=== PATIENT | male | born 1960 ===

== ENCOUNTER 2019-10-04 05:53 | Day surgery (SDC) | payer BC, SELFPAY ==
[2019-10-03 12:01] VITALS: BMI 28.0
[2019-10-04 06:05] VITALS: BP 140/84; PULSE 68; RESP 18; TEMP 36.6; O2SAT 99
--- NOTE | 2019-10-04 06:27 | ANES.PREANE2 ---
Pre-Anesthetic Assessment Pre-Anesthetic Assessment: Height/Weight: Height 1.93 m Weight 104.326 kg Preop Diagnosis: left Spigelian hernia Proposed Procedure: Operation Date: 10/04/19 07:00 Proposed Procedures p Ventral Hernia Repair (Open) w/ Mesh/Spieglian hernia(Left) - Wei Mattson MD Last intake: Intake Last Liquid Date 10/03/19 Last Liquid Time 22:30 Last Solid Date 10/03/19 Last Solid Time 22:30 Exam: Pre-Anes Outpt Exam: alert, oriented x 3, clear to auscultation bilaterally and regular rate & rhythm Airway: Submandibular: WNL Cervical ROM: WNL MP: 1 : Comments: s/p left nephrectomy '11 GI: GI: GERD Comments: tums only Anesthetic Plan: ASA status: 2 PFSH Anesthesia PFSH: Family History (Updated 10/03/19 @ 11:47 by Hedy Simmons RN) Other Cancer Diabetes Heart disease Stroke Data Anesthesia Cardiac Studies: No Data to Display
--- NOTE | 2019-10-04 06:49 | W.PM.OPSUD ---
Surgery/Procedure H&P Update DATE OF PROCEDURE: October 04, 2019 DATE H&P PERFORMED: 09/25/19 H&P UPDATE INFORMATION: I have examined patient prior to procedure and No changes to prior documentation PREOP DIAGNOSIS: left Spigelian hernia PLANNED PROCEDURE: Operation Date: 10/04/19 07:00 Proposed Procedures p Ventral Hernia Repair (Open) w/ Mesh/Spieglian hernia(Left) - Wei Mattson MD
[2019-10-04] MEDS: sodium chloride 0.9% 1,000 ML 30 ML IV (06:58)
--- NOTE | 2019-10-04 07:40 | PM.OP ---
Operative Report Date of procedure: October 04, 2019 Pre-op Diagnosis: Left Spigelian hernia Post-op diagnosis: same Procedure Done: Repair of left spigelian hernia. Pathology: none sent Surgeon: Wei Mattson Anesthesia: MAC Estimated blood loss (mL): 5 Complications: None. Condition: stable Disposition: same day Procedure: The patient was brought to the operating room and was placed in a supine position on the operating room table. A monitored anesthetic was induced. The abdomen was prepped and draped in a sterile fashion. The location of the patient's hernia had been marked with the patient's assistance preoperatively in the holding area. A combination of 1% lidocaine with 1 to 100,000 parts epinephrine 1.5% bupivacaine was used for local anesthesia throughout the procedure. A transverse incision was carried out over the area of the hernia. Cautery was used to divide the subcutaneous tissue down to the external oblique aponeurosis which was incised in parallel with its fibers. This revealed a hernia sac coming through the underlying musculofacial layer. The preperitoneal fat was excised from the surface of the sac and a small opening was actually made in the sac to facilitate dissection. The sac was closed with a running suture of 0 Vicryl and and was then reduced through the defect which measured perhaps 1.5 cm in diameter. Some sutures of 0 Prolene were used to bring the fascia together, closing the defect. The wound was irrigated with saline. The external oblique aponeurosis was then closed over the top of the repair with a running suture of 0 Vicryl. A final round of irrigation was carried out. The subcutaneous tissue was brought together with a simple suture of 3-0 Vicryl and the skin was approximated using a running subcuticular suture of 4-0 Vicryl. Benzoin and Steri-Strips were placed over the incision and a sterile bandage followed. The patient was taken to the outpatient recovery area in stable condition postoperatively.
[2019-10-04 07:45] VITALS: BP 103/68; PULSE 65; RESP 18; TEMP 36.8
--- NOTE | 2019-10-04 07:54 | ANE.PACU2 ---
 Inpatient post-anesthesia follow up: Airway intact: Yes Vital signs: Temperature 98 F Pulse Rate 68 Respiratory Rate 18 Blood Pressure 140/84 Pulse Oximetry 99 Oxygen Delivery Me thod Room Air Oxygen Flow Rate Fraction of Inspir ed Oxygen Hydration adequate: Yes Nausea and vomiting: No Pain level: 1 Mental status: Baseline
[2019-10-04 08:10] VITALS: BP 116/72; PULSE 61; RESP 18; O2SAT 100
== END 2019-10-04 08:40 | disposition home or self-care (01) ==
PROVIDERS: Family Provider Family Medicine; PCP Family Medicine; Visit Provider Surgery
PROC: 0WQF0ZZ Repair Abdominal Wall, Open Approach (ICD-10-PCS; CPT 49590; principal; 2019-10-04 07:00)
DX: K43.9 Ventral hernia without obstruction or gangrene (principal); K21.9 Gastro-esophageal reflux disease without esophagitis; Z82.49 Family history of ischemic heart disease and other diseases of the circulatory system; Z83.3 Family history of diabetes mellitus
CPT/HCPCS: 49590; 12345; J0690; J2001; J2405; J2704; J3010; J3490; J7030

== ENCOUNTER 2022-01-08 09:47 | Outpatient (CLI) | payer BC, SELFPAY ==
--- NOTE | 2022-01-08 10:29 | USCV_ITS ---
Aguilar Maurer Age: 62 Gender: M : 1960 Exam Date: 01/08/2022 11:00 Ordering Phys: Tushar Pugh MD Technologist: [place] [facility] [place]: murmur BP: 123 / 73 HR: 70 Rhythm: Sinus Technical Quality: Adequate MEASUREMENTS (Male / Female) Normal Values 2D ECHO LV Diastolic Diameter PLAX 3.4 cm 4.2 - 5.9 / 3.9 - 5.3 cm LV Systolic Diameter PLAX 2.9 cm IVS Diastolic Thickness 2.0 cm 0.6 - 1.0 / 0.6 - 0.9 cm IVS Systolic Thickness 2.5 cm LVPW Diastolic Thickness 1.0 cm 0.6 - 1.0 / 0.6 - 0.9 cm LVPW Systolic Thickness 0.9 cm LVOT Diameter 2.1 cm LV Ejection Fraction 2D Teich 30.7 % LV Ejection Fraction MOD 2C 68.8 % LV Ejection Fraction 2C AL 68.3 % LA Diameter 3.8 cm Aorta at Sinotubular Diameter 3.0 cm M-MODE Aortic Annulus Diameter 3.7 cm LA Ao Ratio MM 1.2 MV E Point Septal Separation 1.2 cm DOPPLER AV Peak Velocity 101.0 cm/s LVOT Peak Velocity 94.0 cm/s AV Area Cont Eq vti 4.3 cm squared AV Area Cont Eq pk 3.1 cm squared MV Area PHT 5.0 cm squared Mitral E to A Ratio 1.1 MV E' Velocity 63.5 cm/s Mitral E to MV E' Ratio 17.5 Mitral E to LV E' Lateral Ratio 14.5 Mitral E to LV E' Septal Ratio 22.0 PV Peak Velocity 127.0 cm/s FINDINGS Left Ventricle Normal left ventricular size and systolic function, EF 67 %. Moderate concentric left ventricular hypertrophy. Grade I/IV diastolic dysfunction (abnormal relaxation filling pattern), normal to mildly elevated filling pressures. Right Ventricle The right ventricle is normal in size and function. Right Atrium The right atrium is normal in size. Left Atrium Mildly increased left atrial size. Mitral Valve Systolic anterior motion of the chordae Aortic Valve Thickened aortic valve. Trace aortic valve regurgitation. Tricuspid Valve Trace to mild tricuspid valve regurgitation. Pulmonic Valve No gross abnormalities noted Pericardium Normal pericardium without effusion. Aorta Normal ascending aorta dimension. IVC Normal inferior vena cava. CONCLUSIONS Normal left ventricular size and systolic function, EF 67 %. Moderate concentric left ventricular hypertrophy. Grade I/IV diastolic dysfunction (abnormal relaxation filling pattern), normal to mildly elevated filling pressures. Mildly increased left atrial size. Systolic anterior motion of the chordae. Thickened aortic valve. Trace aortic valve regurgitation. Trace to mild tricuspid valve regurgitation. There is no pericardial effusion. There are no intracardiac masses. No similar previous studies are available for comparison Dr Allison Brown MD [facility] (Electronically Signed) Final Date: 09 January 2022 08:34 S
== END 2022-01-08 09:48 | disposition home or self-care (01) ==
PROVIDERS: PCP Family Medicine; Visit Provider Family Medicine
DX: R01.1 Cardiac murmur, unspecified (principal); I08.2 Rheumatic disorders of both aortic and tricuspid valves
CPT/HCPCS: 93306

== ENCOUNTER → 2023-01-17 10:38 | Outpatient (BNVA) | payer BC, SELFPAY | PROVIDERS: PCP Family Medicine; Visit Provider Nurse Practitioner Family | DX: M65.831 Other synovitis and tenosynovitis, right forearm | CPT/HCPCS: 73090 ==